=== PATIENT | female | born 1965 | race Two or more races ===

== ENCOUNTER 2019-01-26 20:36 | Emergency (ER) | payer OTHER ==
[2019-01-26 20:46] VITALS: BP 168/95; PULSE 91; TEMP 99; BMI 32.9
--- NOTE | 2019-01-26 20:50 | PDOC ---
History of Present Illness - General Chief Complaint: Abscess Boil Stated Complaint: FEVER Time Seen by Provider: 01/26/19 20:49 History Source: Patient Exam Limitations: No Limitations - History of Present Illness Initial Comments: Janna Herbert is a 53 yo F w a pmh of IDDM, HTN, asthma, thyroid Ca s/p thyroid resection on levothyroxine who presents to the [facility] ER via private auto because she has been having multiple abscesses. The patient states that one month ago she developed an abscess on her buttock for which she went to [facility] and had the abscess I&D'ed. She staes that [facility] also gave her 3 Abx prescriptions for the abscess - Bactrim, metronidazole, and ciprofloxacin. The patient took all these medications as prescribed but returns to the [facility] ER because now she has around 10-15 new abscesses spread out around her buttock, groin, back, and even on her face. The patient has pictures of her prior abscesses for which they had surrounding areas of erythema, and cellulitic appearing skin. She has been self popping her abscesses and trying to drain out the pus. Today her abscesses are mostly crusted over and do not appear ready to pop. She has no surrounding areas of erythema around her abscesses today. What prompted the patient to come to the ER is that she started getting fevers, feeling very weak, and the abscesses have become very painful especially the one on her nose. She does not know what is going on and wants these abscesses evaluated. Patient denies having any chest pain, SOB, difficulty breathing, dysuria, frequency, productive cough, diarrhea, nausea, vomiting, headache, neck pain or blurry vision. LMP: Began yesterday PCP: Timbo steel PSH: Cholecystectomy, thyroid removal, Allergies: NKA, NKDA Social Hx: Denies smoking, drinking, or illicit drug usage. Past History - Past Medical History Allergies/Adverse Reactions: Allergies Allergy/AdvReac Type Severity Reaction Status Date / Time No Known Allergies Allergy Verified 01/26/19 20:40 Home Medications: Ambulatory Orders Clindamycin [Cleocin -] 300 mg PO Q6HPO 7 Days #28 capsule 01/26/19 Glipizide/Metformin HCl [Glipizide-Metformin 5-500 mg] 1 each PO DAILY 07/20/19 Insulin Glargine,Hum.rec.anlog [Kena Richey U-100] 45 unit SQ HS 01/26/19 Levothyroxine [Synthroid -] 150 mcg PO DAILY 01/26/19 Mupirocin Ointment [Bactroban Ointment (For Decolonization) -] 1 applic TP BID 5 Days #5 applic 01/26/19 Mupirocin Ointment [Bactroban Ointment (For Decolonization) -] 1 applic TP BID 5 Days #5 applic 01/26/19 Asthma: Yes COPD: No Diabetes: Yes HTN: Yes - Surgical History Cholecystectomy: Yes - Suicide/Smoking/Psychosocial Hx Smoking History: Never smoked Drug/Substance Use Hx: No Review of Systems - Review of Systems Able to Perform ROS?: Yes Comments:: CONSTITUTIONAL: Present: Fever, chills, generalized weakness, malaise Absent: diaphoresis, loss of appetite HEENT: Absent: rhinorrhea, nasal congestion, throat pain, throat swelling, difficulty swallowing, mouth swelling, ear pain, eye pain, visual Changes CARDIOVASCULAR: Absent: chest pain, syncope, palpitations, irregular heart rate, lightheadedness , peripheral edema RESPIRATORY: Absent: cough, shortness of breath, dyspnea with exertion, orthopnea, wheezing, stridor, hemoptysis GASTROINTESTINAL: Absent: abdominal pain, abdominal distension, nausea, vomiting, diarrhea, constipation, melena, hematochezia GENITOURINARY: Present: Genital pain Absent: dysuria, frequency, urgency, hesitancy, hematuria, flank pain MUSCULOSKELETAL: Absent: myalgia, arthralgia, joint swelling SKIN: Present: Rash Absent: itching, pallor HEMATOLOGIC/IMMUNOLOGIC: Present: Frequent infections Absent: easy bleeding, easy bruising, lymphadenopathy ENDOCRINE: Absent: unexplained weight gain, unexplained weight loss, heat intolerance, cold intolerance NEUROLOGIC: Absent: headache, focal weakness or paresthesias, dizziness, unsteady gait, seizure, mental status changes, bladder or bowel incontinence PSYCHIATRIC: Absent: anxiety, depression, suicidal or homicidal ideation, hallucinations. *Physical Exam - Vital Signs Last Vital Signs Temp Pulse Resp BP Pulse Ox 99.0 F 91 H 20 168/95 98 01/26/19 20:40 01/26/19 20:40 01/26/19 20:40 01/26/19 20:40 01/26/19 20:40 - Physical Exam Comments: GENERAL: Well developed, well nourished. Awake and alert. No acute distress. HEENT: There is a swollen 2x2 area on the left side of her nose which is indurated and TTP. Normocephalic, atraumatic. PERRLA, EOMI. No conjunctival pallor. Sclera are non-icteric. Moist mucous membranes. Oropharynx is clear. NECK: Supple. Full ROM. No JVD. CARDIOVASCULAR: Regular rate and rhythm. No murmurs, rubs, or gallops. Distal pulses are 2+ and symmetric. PULMONARY: No evidence of respiratory distress. Lungs clear to auscultation bilaterally. No wheezing, rales or rhonchi. ABDOMINAL: Soft. Non-tender. Non-distended. No rebound or guarding. No organomegaly. Normoactive bowel sounds. MUSCULOSKELETAL Normal range of motion at all joints. No bony deformities or tenderness. No CVA tenderness. EXTREMITIES: No cyanosis. No clubbing. No edema. No calf tenderness. SKIN: There are multiple indurated areas which are TTp on the patient's buttock, lower back, and groin. These abscesses are mostly fluctuant but have no areas of surrounding erythema. Warm and dry. Normal capillary refill. No jaundice. NEUROLOGICAL: Alert, awake, appropriate. Cranial nerves 2-12 intact. No deficits to light touch in face, upper extremities and lower extremities. No motor deficits in the in face, upper extremities and lower extremities. Normal speech. Gait is normal without ataxia. PSYCHIATRIC: Cooperative. Good eye contact. Appropriate mood and affect. Heart Score/ECG Review - ECG Intrepretation Rhythm: Regular Rhythm - [place]: Normal - P and HI Atrial Enlargement: Left Prominent R with upright T in V1 (true posterior VT): No Delta Wave(s) Present: No WPW: No - QRS Poor R Wave Progression: No Q Wave Present: No - ST and T Early Repolarization: No Non Specific ST-T Wave changes: No Flattened T Waves: No Prolonged Q-T Interval: Yes - ECG Impressions Normal ECG: No Non-specific ST Elevation: No Ischemic Changes: No Bradycardia: No Torsades tej Pointes: No WPW: No ED Treatment Course - LABORATORY CBC & Chemistry Diagram: 01/26/19 21:24 01/26/19 21:24 - RADIOLOGY Radiograph Interpretation: CXR: Single view AP portable chest Sepsis Trachea midline with normal heart size and no mediastinal widening no infiltrate, mass or effusion Impression: Normal single view AP portable chest Medical Decision Making - Medical Decision Making Janna Herbert is a 53 yo F w a pmh of IDDM, HTN, asthma, thyroid Ca s/p thyroid resection on levothyroxine who presents to the [facility] ER via private auto because she has been having multiple abscesses. The patient states that one month ago she developed an abscess on her buttock for which she went to [facility] and had the abscess I&D'ed. She staes that [facility] also gave her 3 Abx prescriptions for the abscess - Bactrim, metronidazole, and ciprofloxacin. The patient took all these medications as prescribed but returns to the [facility] ER because now she has around 10-15 new abscesses spread out around her buttock, groin, back, and even on her face. The patient has pictures of her prior abscesses for which they had surrounding areas of erythema, and cellulitic appearing skin. She has been self popping her abscesses and trying to drain out the pus. Today her abscesses are mostly crusted over and do not appear ready to pop. She has no surrounding areas of erythema around her abscesses today. What prompted the patient to come to the ER is that she started getting fevers, feeling very weak, and the abscesses have become very painful especially the one on her nose. She does not know what is going on and wants these abscesses evaluated. Vital Signs Temp Pulse Resp BP Pulse Ox 99.0 F 91 H 20 168/95 98 01/26/19 20:40 01/26/19 20:40 01/26/19 20:40 01/26/19 20:40 01/26/19 20:40 MDM: Patient presents with multiple refractory abscesses despite receiving 3 Abx medications. Now she endorses fevers, chills, weakness, and multiple abscesses. It appears she has some systemic syndrome causing her to have all these abscesses. She might be colonized with MRSA. Plan: MRSA screen, labs, urine, cultures, IV hydration, ED sepsis workup, re- assess. Labs: Leukocytosis and hyperglycemia Urine: 3+ blood likely from period CXR: Unremarkable EKG: NS rate of 83, narrow complexes, normal axis, left atrial enlargement no ventricular hypertrophy, no ST elevation or depression, no abnormal TWI, no Q waves, QTc - prolonged at 481, HI - 142. Re-assessment: Patient feels well after tylenol and IV hydration. Disposition: Home with clindamycin and intranasal mupirocen ointment - PCP FU - Return precautions discussed. *DC/Admit/Observation/Transfer Diagnosis at time of Disposition: Multiple sweat gland abscesses - Discharge Dispostion Disposition: HOME Condition at time of disposition: Improved Decision to Admit order: No - Prescriptions Prescriptions: Clindamycin [Cleocin -] 300 mg PO Q6HPO 7 Days #28 capsule Mupirocin Ointment [Bactroban Ointment (For Decolonization) -] 1 applic TP BID 5 Days #5 applic Mupirocin Ointment [Bactroban Ointment (For Decolonization) -] 1 applic TP BID 5 Days #5 applic - Referrals Referrals: Giovanni Steel MD [Primary Care Provider] - - Patient Instructions Printed Discharge Instructions: DI for Methicillin-Resistant Staph Infection ( MRSA) Additional Instructions: You came into the ER with multiple abscesses. We believe you have MRSA. 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 Come back to the ER immediately if your pain worsens, you get a fever, or have any other new or worsening concerns. thank you for coming to the [facility] ER. We hope you feel better soon! Print Language: GUATEMALAN - Post Discharge Activity
[2019-01-26] MEDS ORDERED: SODIUM CHLORIDE 2,694 ML IV ONE (21:04)
[2019-01-26] MEDS ORDERED: ACETAMINOPHEN 325 MG TABLET (FP) PO ONE (21:15)
[2019-01-26 21:44] LABS: EOS % 4.6 % (0-4.5); HEMATOCRIT 35.3 % (32.4-45.2); HEMOGLOBIN 11.4 GM/dL (10.7-15.3); LYMPH % 18.3 % (8-40); MCH 25.2 pg (25.7-33.7); MCHC 32.2 g/dl (32.0-36.0); MEAN CELL VOLUME 78.4 fl (80-96); MEAN PLT VOLUME 9.5 fl (7.5-11.1); MONO % 6.4 % (3.8-10.2); NEUT % 69.7 % (42.8-82.8); PLATELET COUNT 286 K/MM3 (134-434); RDW 16.3 % (11.6-15.6); WHITE BLOOD COUNT 11.4 K/mm3 (4.0-10.0)
[2019-01-26 21:49] LABS: EPI CELLS 0.4 /HPF (0-5/HPF); HYALINE CASTS 0 /lpf (0-8); PH,URINE 6.5 (5.0-8.0); URINE APPEARANCE CLEAR; URINE BACTERIA 1.4 /hpf (NEGATIVE); URINE BILIRUBIN NEGATIVE (NEGATIVE); URINE COLOR YELLOW; URINE GLUCOSE (UA) 3+ (NEGATIVE); URINE KETONE NEGATIVE (NEGATIVE); URINE LEUK ESTERASE NEGATIVE (NEGATIVE); URINE NITRITE NEGATIVE (NEGATIVE); URINE PROTEIN 2+ (NEGATIVE); URINE RBC 480 /hpf (0-4); URINE UROBILINOGEN 0.2 mg/dL (0.2-1.0); URINE WBC 1 /hpf (0-5)
[2019-01-26 22:03] LABS: INR 1.03 (0.83-1.09); PROTHROMBIN TIME (PATIENT) 12.1 SEC (9.7-13.0)
[2019-01-26 22:06] LABS: ACTIVATED PTT 32.6 SECONDS (25.2-36.5)
[2019-01-26 22:14] LABS: ALBUMIN 3.6 g/dl (3.4-5.0); BILIRUBIN,TOTAL 0.2 mg/dL (0.2-1); BLOOD UREA NITROGEN 5.8 mg/dL (7-18); CALCIUM 8.2 mg/dL (8.5-10.1); POTASSIUM 4.1 mmol/L (3.5-5.1); TOT PROT 7.4 g/dl (6.4-8.2)
[2019-01-26] MEDS ORDERED: ACETAMINOPHEN 325 MG TABLET (FP) ONE (22:35)
--- NOTE | 2019-01-26 23:10 | PDOC ---
Attending Attestation - Resident Resident Name: Greg Falk - ED Attending Attestation I have performed the following: I have examined & evaluated the patient, The case was reviewed & discussed with the resident, I agree w/resident's findings & plan, Exceptions are as noted - HPI HPI: 01/27/19 00:39 Reviewed Residents HPI - Physicial Exam PE: 01/27/19 00:39 Reviewed Residents PE
--- NOTE | 2019-01-27 17:43 | EKG ---
Test Reason : Blood Pressure : / mmHG Vent. Rate : 083 BPM Atrial Rate : 083 BPM P-R Int : 142 ms QRS Dur : 070 ms QT Int : 410 ms P-R-T Axes : 051 040 065 degrees QTc Int : 481 ms NORMAL SINUS RHYTHM POSSIBLE LEFT ATRIAL ENLARGEMENT PROLONGED QT ABNORMAL ECG NO PREVIOUS ECGS AVAILABLE Confirmed by HARINDER HALL MD ([id number]) on 01/27/2019 5:42:57 PM Referred By: Confirmed By:HARINDER HALL MD
== END 2019-01-27 00:15 | disposition home or self-care (01) ==
LOC: JER 20:36
PROC: 3E0337Z Introduction of Electrolytic and Water Balance Substance into Peripheral Vein, Percutaneous Approach (ICD-10-PCS; principal; 2019-01-26)
DX: L74.8 Other eccrine sweat disorders (principal); I10 Essential (primary) hypertension; E11.9 Type 2 diabetes mellitus without complications; J45.909 Unspecified asthma, uncomplicated; Z85.850 Personal history of malignant neoplasm of thyroid
CPT/HCPCS: 36415; 71045-TC-FY; 80053; 81003; 83605; 84484; 85025; 85610; 85730; 87040; 87081; 87086; 93005; 93010; 96360; 99283-25; J7030

== ENCOUNTER 2019-05-25 14:05 | Emergency (ER) | payer OTHER ==
[2019-05-25 14:09] VITALS: BP 155/83; PULSE 99; TEMP 98; BMI 33.3
--- NOTE | 2019-05-25 15:10 | PDOC ---
History of Present Illness - General Chief Complaint: Eye Problem Stated Complaint: RT EYE PAIN/ FEVER Time Seen by Provider: 05/25/19 14:11 History Source: Patient Exam Limitations: No Limitations Past History - Travel Traveled outside of the country in the last 30 days: No Close contact w/someone who was outside of country & ill: No - Past Medical History Allergies/Adverse Reactions: Allergies Allergy/AdvReac Type Severity Reaction Status Date / Time No Known Allergies Allergy Verified 05/25/19 14:09 Home Medications: Ambulatory Orders Clindamycin [Cleocin -] 300 mg PO Q6HPO 7 Days #28 capsule 01/26/19 Glipizide/Metformin HCl [Glipizide-Metformin 5-500 mg] 1 each PO DAILY 01/26/19 Insulin Glargine,Hum.rec.anlog [Basaglar Kwikpen U-100] 45 unit SQ HS 01/26/19 Levothyroxine [Synthroid -] 150 mcg PO DAILY 01/26/19 Mupirocin Ointment [Bactroban Ointment (For Decolonization) -] 1 applic TP BID 5 Days #5 applic 01/26/19 Mupirocin Ointment [Bactroban Ointment (For Decolonization) -] 1 applic TP BID 5 Days #5 applic 01/26/19 Erythromycin 0.5% Eye Ointment [Erythromycin 0.5% Eye Ointment -] 1 applic OD TID #1 tube 05/25/19 Asthma: Yes COPD: No Diabetes: Yes HTN: Yes - Surgical History Cholecystectomy: Yes - Psycho Social/Smoking Cessation Hx Smoking History: Never smoked Drug/Substance Use Hx: No Review of Systems - Review of Systems Able to Perform ROS?: Yes Comments:: 05/25/19 19:27 CONSTITUTIONAL: Absent: fever, chills, diaphoresis, generalized weakness, malaise, loss of appetite HEENT: Present: eye pain Absent: rhinorrhea, nasal congestion, throat pain, throat swelling, difficulty swallowing, mouth swelling, ear pain, visual Changes CARDIOVASCULAR: Absent: chest pain, loss of consciousness, palpitations, irregular heart rate, peripheral edema RESPIRATORY: Absent: cough, shortness of breath, dyspnea with exertion, orthopnea, wheezing, stridor, hemoptysis GASTROINTESTINAL: Absent: abdominal pain, abdominal distension, nausea, vomiting, diarrhea, constipation, melena, hematochezia GENITOURINARY: Absent: dysuria, frequency, urgency, hesitancy, hematuria, flank pain, genital pain MUSCULOSKELETAL: Absent: myalgia, arthralgia, joint swelling SKIN: Absent: rash, itching, pallor HEMATOLOGIC/IMMUNOLOGIC: Absent: easy bleeding, easy bruising, lymphadenopathy, frequent infections ENDOCRINE: Absent: unexplained weight gain, unexplained weight loss, heat intolerance, cold intolerance NEUROLOGIC: Absent: headache, focal weakness or paresthesias, dizziness, unsteady gait, seizure, mental status changes, bladder or bowel incontinence PSYCHIATRIC: Absent: anxiety, depression, suicidal or homicidal ideation, hallucinations. Is the patient limited Cook Islander proficient: No *Physical Exam - Vital Signs Last Vital Signs Temp Pulse Resp BP Pulse Ox 98 F 99 H 18 155/83 99 05/25/19 14:06 05/25/19 14:06 05/25/19 14:06 05/25/19 14:06 05/25/19 14:06 - Physical Exam Comments: 05/25/19 19:28 GENERAL: The patient is awake, alert, and fully oriented, in no acute distress. HEAD: Normal with no signs of trauma. EYES: Pupils equal, round and reactive to light, extraocular movements intact, sclera anicteric, L conjunctiva clear. Right conjunctiva is injected. EXTREMITIES: Normal range of motion, no edema. NEUROLOGICAL: Normal speech, normal gait. PSYCH: Normal mood, normal affect. SKIN: Warm, Dry, normal turgor, no rashes or lesions noted. Medical Decision Making - Medical Decision Making 05/25/19 19:28 Patient is a 53-year-old female who presents the ER today for right eye pain for 2 days. She states that she recently had the stomach virus including vomiting and diarrhea 3 days ago. She states that the redness started while she had the gastroenteritis. She is concerned because it is not getting better and she has some eye pain. Patient usually wears glasses however she is not wearing them today. Denies fevers, chills, dizziness, double vision, blurry vision. A/P: Conjunctivitis On exam the right conjunctiva is injected. Unlikely corneal abrasion as patient denies any eye trauma or anything getting into her eye. Most likely of viral conjunctivitis given recent gastroenteritis. Eyes are soft on exam, unlikely glaucoma. We will treat with erythromycin ointment and give ophthalmology follow-up. I discussed the physical exam findings, ancillary test results and final diagnoses with the patient. I answered all of the patient's questions. The patient was satisfied with the care received and felt comfortable with the discharge plan and treatment plan. The Patient agrees to follow up with the primary care physician/specialist within 24-72 hours. Return precautions were given. Discharge - Discharge Information Problems reviewed: Yes Clinical Impression/Diagnosis: Conjunctivitis Qualifiers: Conjunctivitis type: acute Acute conjunctivitis type: viral Laterality: right Qualified Code(s): B30.9 - Viral conjunctivitis, unspecified Condition: Stable Disposition: HOME - Admission No - Additional Discharge Information Prescriptions: Erythromycin 0.5% Eye Ointment [Erythromycin 0.5% Eye Ointment -] 1 applic OD TID #1 tube - Follow up/Referral Referrals: Quinn Davis MD [Staff Physician] - - Patient Discharge Instructions Patient Printed Discharge Instructions: DI for Conjunctivitis Additional Instructions: You have conjunctivitis. This is an eye infection. Please use erythromycin ointment three times a day to the affected eye for one week. Please wash her hands frequently Do not wear contact lenses until your infection clears Follow up with ophthalmology if her symptoms do not improve within a week. Return to the ER for visual changes, blurry vision, or any new or worsening symptoms. - Post Discharge Activity Work/Back to School Note: Back to Work
== END 2019-05-25 15:15 | disposition home or self-care (01) ==
LOC: JERFT 14:05
DX: B30.9 Viral conjunctivitis, unspecified (principal); B97.89 Other viral agents as the cause of diseases classified elsewhere; I10 Essential (primary) hypertension; E11.9 Type 2 diabetes mellitus without complications; Z79.4 Long term (current) use of insulin; J45.909 Unspecified asthma, uncomplicated
CPT/HCPCS: 99281-25

== ENCOUNTER 2019-07-08 23:53 | Emergency (ER) | payer OTHER ==
[2019-07-09 00:46] VITALS: PULSE 89; TEMP 99; BMI 32.4
--- NOTE | 2019-07-09 01:17 | PDOC ---
History of Present Illness - General Chief Complaint: Cold Symptoms Stated Complaint: FEVER CHEST PAIN Time Seen by Provider: 07/09/19 01:16 History Source: Patient - History of Present Illness Initial Comments: 07/09/19 02:32 53 year old female with fever, cough and congestion x 5 days. patient reports that grandson with nasal congestion and cough. patient reports midsternal chest pain worse with palpation, and breathing. denies nausea, vomiting pmhx: hypertension, diabetes, asthma 07/09/19 03:18 Past History - Past Medical History Allergies/Adverse Reactions: Allergies Allergy/AdvReac Type Severity Reaction Status Date / Time No Known Allergies Allergy Verified 07/09/19 00:36 Home Medications: Ambulatory Orders Clindamycin [Cleocin -] 300 mg PO Q6HPO 7 Days #28 capsule 01/26/19 Glipizide/Metformin HCl [Glipizide-Metformin 5-500 mg] 1 each PO DAILY 01/26/19 Insulin Glargine,Hum.rec.anlog [Basaglar Kwikpen U-100] 45 unit SQ HS 01/26/19 Levothyroxine [Synthroid -] 150 mcg PO DAILY 01/26/19 Mupirocin Ointment [Bactroban Ointment (For Decolonization) -] 1 applic TP BID 5 Days #5 applic 01/26/19 Mupirocin Ointment [Bactroban Ointment (For Decolonization) -] 1 applic TP BID 5 Days #5 applic 01/26/19 Erythromycin 0.5% Eye Ointment [Erythromycin 0.5% Eye Ointment -] 1 applic OD TID #1 tube 05/25/19 Albuterol Sulfate Inhaler - [Ventolin HFA Inhaler -] 1 - 2 inh PO Q4H PRN #1 inhaler 07/09/19 Azithromycin [Zithromax 250mg Tablets -] 250 mg PO UTDICT #6 tab 07/09/19 Miscellaneous Drug Not in Syst 1 each IH Q4H PRN #30 each 07/09/19 Sodium Chloride [Nasal [place]] 1 ml NS QID PRN #1 spray 07/09/19 Asthma: Yes COPD: No Diabetes: Yes HTN: Yes - Surgical History Cholecystectomy: Yes - Psycho Social/Smoking Cessation Hx Smoking History: Never smoked Have you smoked in the past 12 months: No Information on smoking cessation initiated: No Hx Alcohol Use: No Drug/Substance Use Hx: No Review of Systems - Review of Systems Able to Perform ROS?: Yes Is the patient limited Welsh proficient: No Constitutional: No: Symptoms Reported, See HPI, Chills, Diaphoresis, Fever, Loss of Appetite, Malaise, Night Sweats, Weakness, Weight Stable, Unintentional Wgt. Loss, Unexplained wgt Loss, Other Respiratory: Yes: Cough Cardiac (ROS): Yes: Chest Pain *Physical Exam - Vital Signs Last Vital Signs Temp Pulse Resp BP Pulse Ox 99.0 F 89 18 193/101 H 98 07/09/19 00:10 07/09/19 00:10 07/09/19 00:10 07/09/19 00:10 07/09/19 00:10 - Physical Exam Respiratory/Chest: positive: Chest Tender, Lungs Clear, Normal Breath Sounds Cardiovascular: positive: Regular Rhythm, Regular Rate Gastrointestinal/Abdominal: positive: Normal Bowel Sounds, Soft. negative: Tender Extremity: positive: Normal Capillary Refill, Normal Inspection, Normal Range of Motion Integumentary: positive: Normal Color, Dry, Warm Neurologic: positive: Fully Oriented, Alert ED Progress Note - Progress Note Progress Note: 07/09/19 02:35 A: bronchitis P: chest xray ibuprofen saline neb close pcp follow up and strict return precautions reviewed with patient Discharge - Discharge Information Problems reviewed: Yes Clinical Impression/Diagnosis: Bronchitis Condition: Good Disposition: HOME - Additional Discharge Information Prescriptions: Albuterol Sulfate Inhaler - [Ventolin HFA Inhaler -] 1 - 2 inh PO Q4H PRN #1 inhaler PRN Reason: Cough Azithromycin [Zithromax 250mg Tablets -] 250 mg PO UTDICT #6 tab Miscellaneous Drug Not in Syst 1 each IH Q4H PRN #30 each PRN Reason: Nasal Congestion Sodium Chloride [Nasal [place]] 1 ml NS QID PRN #1 spray PRN Reason: Nasal Congestion - Follow up/Referral Referrals: Giovanni Shannon MD [Primary Care Provider] - - Patient Discharge Instructions Patient Printed Discharge Instructions: DI for Acute Bronchitis Additional Instructions: Drink plenty of fluids. take azithromycin as prescribed Give Tylenol every 4 hours as needed for fever Give ibuprofen then every 6 hours as needed for fever use albuterol inhaler as prescribed Follow-up with your doctor as soon as possible Return to the emergency room if symptoms worsen. - Post Discharge Activity Work/Back to School Note: Back to Work
--- NOTE | 2019-07-09 01:18 | PDOC ---
*Physical Exam - Vital Signs Last Vital Signs Temp Pulse Resp BP Pulse Ox 99.0 F 89 18 193/101 H 98 07/09/19 00:10 07/09/19 00:10 07/09/19 00:10 07/09/19 00:10 07/09/19 00:10 Medical Decision Making - Medical Decision Making 07/09/19 01:18 Patient seen by the advanced practice provider under my direct supervision. Ancillary testing reviewed as necessary. I agree with plan as outlined by the advanced practice provider. Discharge - Discharge Information Problems reviewed: Yes Clinical Impression/Diagnosis: Bronchitis Condition: Good Disposition: HOME - Additional Discharge Information Prescriptions: Albuterol Sulfate Inhaler - [Ventolin HFA Inhaler -] 1 - 2 inh PO Q4H PRN #1 inhaler PRN Reason: Cough Azithromycin [Zithromax 250mg Tablets -] 250 mg PO UTDICT #6 tab Miscellaneous Drug Not in Syst 1 each IH Q4H PRN #30 each PRN Reason: Nasal Congestion Sodium Chloride [Nasal [place]] 1 ml NS QID PRN #1 spray PRN Reason: Nasal Congestion - Follow up/Referral Referrals: Giovanni Shannon MD [Primary Care Provider] - - Patient Discharge Instructions Patient Printed Discharge Instructions: DI for Acute Bronchitis Additional Instructions: Drink plenty of fluids. take azithromycin as prescribed Give Tylenol every 4 hours as needed for fever Give ibuprofen then every 6 hours as needed for fever use albuterol inhaler as prescribed Follow-up with your doctor as soon as possible Return to the emergency room if symptoms worsen. - Post Discharge Activity Work/Back to School Note: Back to Work
[2019-07-09] MEDS ORDERED: SODIUM CHLORIDE FOR INHALATION 3 ML VIAL.NEB IH ONE (01:37)
[2019-07-09] MEDS ORDERED: IBUPROFEN 600 MG TABLET (FP) PO ONE ×2 (01:37→01:58)
[2019-07-09 03:45] VITALS: BP 149/94
--- NOTE | 2019-07-10 17:42 | EKG ---
Test Reason : Blood Pressure : / mmHG Vent. Rate : 083 BPM Atrial Rate : 083 BPM P-R Int : 150 ms QRS Dur : 072 ms QT Int : 410 ms P-R-T Axes : 074 067 091 degrees QTc Int : 481 ms NORMAL SINUS RHYTHM NONSPECIFIC T WAVE ABNORMALITY PROLONGED QT ABNORMAL ECG WHEN COMPARED WITH ECG OF 26-JAN-2019 21:37, NO SIGNIFICANT CHANGE WAS FOUND Confirmed by YVETTE HARRIS, SAVI ([id number]) on 07/10/2019 5:42:08 PM Referred By: Confirmed By:SAVI CRAWFORD MD
== END 2019-07-09 04:31 | disposition home or self-care (01) ==
LOC: JER 23:53
PROC: 3E0F7GC Introduction of Other Therapeutic Substance into Respiratory Tract, Via Natural or Artificial Opening (ICD-10-PCS; principal; 2019-07-08)
DX: J40 Bronchitis, not specified as acute or chronic (principal); I10 Essential (primary) hypertension; E11.9 Type 2 diabetes mellitus without complications; Z79.4 Long term (current) use of insulin; J45.998 Other asthma
CPT/HCPCS: 71046-TC-FY; 93005; 93010; 94640; 99282-25

== ENCOUNTER 2019-09-29 17:54 | Emergency (ER) | payer OTHER ==
[2019-09-29 17:59] VITALS: BP 162/94; PULSE 89; TEMP 98.5; BMI 32.4
--- NOTE | 2019-09-29 18:05 | PDOC ---
Rapid Medical Evaluation Chief Complaint: Respiratory Time Seen by Provider: 09/29/19 18:00 Medical Evaluation: Allergies Allergy/AdvReac Type Severity Reaction Status Date / Time No Known Allergies Allergy Verified 09/29/19 17:59 Vital Signs Temp Pulse Resp BP Pulse Ox 98.5 F 89 22 H 162/94 100 09/29/19 17:57 09/29/19 17:57 09/29/19 17:57 09/29/19 17:57 09/29/19 17:57 09/29/19 18:02 Pt c/o: cough, chest soreness x 2-3 days, worse coughing during day and used albuterol inhaler with goos effect but s/s return w/in hrs. pt denies fever, chills, headache, weakness, recent travel or sick contacts. Last used inhaler 3 hrs ago Pt on brief exam: vss, lcta, reproducible chest tenderness jay, no resp distress or use of accessory muscles Pt ordered for: none. ? cxr and prednisone Pt proceed to the ED Discharge Disposition - Diagnosis Cough - Referrals Referrals: Giovanni Shannon MD [Primary Care Provider] - - Patient Instructions - Post Discharge Activity
--- NOTE | 2019-09-29 18:36 | PDOC ---
History of Present Illness - General Chief Complaint: Respiratory Stated Complaint: COUGH Time Seen by Provider: 09/29/19 18:00 History Source: Patient, Old Records Exam Limitations: No Limitations - History of Present Illness Initial Comments: 09/29/19 18:36 HISTORY OF PRESENT ILLNESS: 53-year-old woman past medical history of asthma, IDDM, hypertension, thyroid cancer on levothyroxine presents emergency department for evaluation of cough for 3 to 4 days. Patient denies any fevers or chills. Patient reports has been using her albuterol MDI at home which is helped with her cough. Patient denies chest pain abdominal pain, nausea or vomiting. At the end of the initial evaluation patient reported she is in the emergency department because she was concerned that she has Covid-19. No recent travel or sick contacts. PAST MEDICAL HISTORY: See HPI SURGICAL HISTORY: Denies ALLERGIES: No known drug allergies REVIEW OF SYSTEMS General/Constitutional: Denies fever or chills. Denies weakness, weight change. HEENT: Denies change in vision. Denies ear pain or discharge. Denies sore throat. Cardiovascular: Denies chest pain or shortness of breath. Respiratory: See HPI Gastrointestinal: Denies nausea, vomiting, diarrhea or constipation. Denies rectal bleeding. Genitourinary: Denies dysuria, frequency, or change in urination. Musculoskeletal: Denies joint or muscle swelling or pain. Denies neck or back pain. Skin and breasts: Denies rash or easy bruising. Neurologic: Denies headache, vertigo, loss of consciousness, or loss of sensation. Psychiatric: Denies depression or anxiety. Endocrine: Denies increased thirst. Denies abnormal weight change. Hematologic/Lymphatic: Denies anemia, easy bleeding, or history of blood clots. Allergic/Immunologic: Denies hives or skin allergy. Denies latex allergy. PHYSICAL EXAM General Appearance: Well-appearing, appropriately dressed. No apparent distress, no intoxication. HEENT: EOMI, PERRLA, normal ENT inspection, normal voice, TMs normal, pharynx normal. No conjunctival pallor. No photophobia, scleral icterus. Neck: Supple. Trachea midline. No tenderness, rigidity, carotid bruit, stridor, lymphadenopathy, or thyromegaly. Respiratory/Chest: Lungs CTAB. No shortness of breath, chest tenderness, respiratory distress, accessory muscle use. No crackles, rales, rhonchi, stridor, wheezing, dullness Cardiovascular: RRR. S1, S2. No JVD, murmur, bradycardia, tachycardia. Vascular Pulses: Dorsalis-Pedis (R): 2+, Dorsalis-Pedis (L): 2+ Integumentary: Appropriate color, dry, warm. No cyanosis, erythema, jaundice or rash Past History - Past Medical History Allergies/Adverse Reactions: Allergies Allergy/AdvReac Type Severity Reaction Status Date / Time No Known Allergies Allergy Verified 09/29/19 17:59 Home Medications: Ambulatory Orders Clindamycin [Cleocin -] 300 mg PO Q6HPO 7 Days #28 capsule 01/26/19 Glipizide/Metformin HCl [Glipizide-Metformin 5-500 mg] 1 each PO DAILY 01/26/19 Insulin Glargine,Hum.rec.anlog [Basaglar Kwikpen U-100] 45 unit SQ HS 01/26/19 Levothyroxine [Synthroid -] 150 mcg PO DAILY 01/26/19 Mupirocin Ointment [Bactroban Ointment (For Decolonization) -] 1 applic TP BID 5 Days #5 applic 01/26/19 Mupirocin Ointment [Bactroban Ointment (For Decolonization) -] 1 applic TP BID 5 Days #5 applic 01/26/19 Erythromycin 0.5% Eye Ointment [Erythromycin 0.5% Eye Ointment -] 1 applic OD TID #1 tube 05/25/19 Albuterol Sulfate Inhaler - [Ventolin HFA Inhaler -] 1 - 2 inh PO Q4H PRN #1 inhaler 07/09/19 Miscellaneous Drug Not in Syst 1 each IH Q4H PRN #30 each 07/09/19 Sodium Chloride [Nasal [place]] 1 ml NS QID PRN #1 spray 07/09/19 Azithromycin [Zithromax 250mg Tablets -] 250 mg PO UTDICT #6 tab 09/29/19 Benzonatate [Tessalon Pearls -] 200 mg PO TID PRN #42 cap 09/29/19 Asthma: Yes COPD: No Diabetes: Yes HTN: Yes - Surgical History Cholecystectomy: Yes - Psycho Social/Smoking Cessation Hx Smoking History: Never smoked Have you smoked in the past 12 months: No Hx Alcohol Use: No Drug/Substance Use Hx: No *Physical Exam - Vital Signs Last Vital Signs Temp Pulse Resp BP Pulse Ox 98.5 F 89 22 H 162/94 100 09/29/19 17:57 09/29/19 17:57 09/29/19 17:57 09/29/19 17:57 09/29/19 17:57 ED Treatment Course - RADIOLOGY Radiology Studies Ordered: Category Date Time Status CHEST PA & LAT [RAD] Stat Radiology 09/29/19 18:09 Taken Medical Decision Making - Medical Decision Making 09/29/19 18:35 A/P: 53-year-old woman with cough for the past 3 to 4 days Lungs clear to auscultation bilaterally Respirations even and unlabored Speaking in full sentences Chest x-ray as read by me: Gail sawyer. Cardiac silhouette is within normal limits. No focal infiltrates or consolidations are noted. Patient has clear lungs and no respiratory distress I feel it is safe to discharge home. Patient reports she has plenty of nebulizer liquids at home. Given patient's comorbidities I will treat with azithromycin as an outpatient. Dereck Skaggs for cough at home Discharge I discussed the physical exam findings, ancillary test results and final diagnoses with the patient. I answered all of the patient's questions. The patient was satisfied with the care received and felt comfortable with the discharge plan and treatment plan. The patient will call their primary care physician within 24 hours to arrange follow-up and will return to the Emergency Department with any new, persistent or worsening symptoms. Portions of this note have been documented using voice recognition software. As a result, errors may occur in the adjunct history instructor process. Effort has been made to correct all grammatical and adjunct history instructor error, but some may have been missed which may produce sporadic inaccurate adjunct history instructor or nonsensical phrases. Discharge - Discharge Information Problems reviewed: Yes Clinical Impression/Diagnosis: Cough Condition: Stable Disposition: HOME - Admission No - Additional Discharge Information Prescriptions: Benzonatate [Tessalon Pearls -] 200 mg PO TID PRN #42 cap PRN Reason: Cough Azithromycin [Zithromax 250mg Tablets -] 250 mg PO UTDICT #6 tab - Follow up/Referral Referrals: Giovanni Shannon MD [Primary Care Provider] - - Patient Discharge Instructions Additional Instructions: Avoid contact with others until fevers and cough resolved Lots of handwashing and good hygiene Continue albuterol nebulizers every 4-6 hours for the next 2 days then as needed for continued cough Followup with private physician in one to 2 days Return to emergency department / pediatric hospital for worsened symptoms, fevers, dehydration drink 2-3 L of water daily Take Tylenol 650 mg every 4 hours for fever and pain Take azithromycin as directed. Take Tessalon 200 mg every 8 hours as needed for cough Return to the nearest ER if short of breath, unable to swallow or feeling sicker Followup with your doctor in one to 2 days Covid-19 Symptoms and Knowing When to Stay Home and Return to Work The following is the most recent guidance from our Infection Prevention and Control team on the symptoms and duration of Covid-19, along with when to stay home from work, when you may return, and what procedures to follow when you are ready to come back. PLease call [facility] : [facility] CORONAVIRUS HOTLINE: What are the most common symptoms of Covid-19? - Muscle aches - Loss of energy and appetite - Persistent cough - Low grade fever lasting 24 hours or more, causing the person to feel feverish with chills If I have Covid-19, how long can I expect to feel sick? - Typically one week. - The majority of individuals feel better in 5 to 7 days with rest and [id number] cold and flu medications. How does illness progress in cases of Covid-19? - A few individuals progress to pneumonia (infection of the lungs) and/or pneumonitis (inflammation of the lungs). - Pneumonia/pneumonitis causes shortness of breath, worsening cough and in most cases, fever. - Individuals with the symptoms of Covid-19 who develop a worsening cough and shortness of breath must seek care quickly. If Im concerned about my symptoms or feel unwell, when must I stay home from work/ school? If you have muscle aches, cough, fatigue and low-grade fever, do not go to work/ school Evite el contacto con otras personas hasta que se resuelvan las fiebres y la tos Mucho lavado de ezequiel y buena higiene Contine los nebulizadores de albuterol cada 4-6 horas katie los prximos 2 rojas y luego segn sea necesario para la tos continua Seguimiento con mdico privado en [place] a 2 rojas Regreso al servicio de urgencias / hospital peditrico para empeoramiento de los sntomas, fiebres, deshidratacin beber 2-3 L de agua al da [place] Tylenol 650 mg cada 4 horas para la fiebre y el dolor [place] azitromicina noni se indica. [place] Tessalon 200 mg cada 8 horas segn sea necesario para la tos Regrese a la erta ms cercana si tiene dificultad para respirar, no puede tragar o sentirse enfermo Seguimiento con ponce mdico en [place] a 2 rojas Sntomas de Covid-19 y saber cundo quedarse en casa y volver al trabajo La siguiente es la gua ms reciente de nuestro equipo de Prevencin y Control de Infecciones sobre los sntomas y la duracin de Covid-19, junto con cundo quedarse en casa del trabajo, cundo puede regresar y qu procedimientos seguir cuando est listo para volver. PLease llamar [facility] : [facility] CORONAVIRUS HOTLINE: Cules son los sntomas ms comunes de Covid-19? - [place] musculares - Prdida de energa y apetito - Tos persistente - Fiebre de bajo james que dura 24 horas o ms, haciendo que la persona se sienta febril con escalofros Si tengo Covid-19, cunto tiempo puedo esperar sentirme enfermo? - Tpicamente maxi semana. - La mayora de las personas se sienten mejor en 5 a 7 rojas con reposo y medicamentos para el resfriado y la gripe de venta amy. Medical Superintendent progresa la enfermedad en los casos de Covid-19? - Algunos individuos progresan a neumona (infeccin de los pulmones) y/o neumonitis (inflamacin de los pulmones). - Neumona/neumonitis causa dificultad para respirar, empeoramiento de la tos y, en la mayora de los casos, fiebre. - Las personas con los sntomas de Covid-19 que desarrollan un empeoramiento de la tos y dificultad para respirar deben buscar atencin rpidamente. Si estoy preocupado por mis sntomas o me siento mal, cundo matty quedarme en casa del trabajo/ la escuela? Si tiene [place] musculares, tos, fatiga y fiebre de bajo james, no vaya al trabajo/escuela - Post Discharge Activity
== END 2019-09-29 18:37 | disposition home or self-care (01) ==
LOC: JERFT 17:54
DX: Z03.818 Encounter for observation for suspected exposure to other biological agents ruled out (principal); R05 Cough; J45.909 Unspecified asthma, uncomplicated; I10 Essential (primary) hypertension; E11.9 Type 2 diabetes mellitus without complications; Z79.4 Long term (current) use of insulin; Z85.850 Personal history of malignant neoplasm of thyroid; Z90.49 Acquired absence of other specified parts of digestive tract
CPT/HCPCS: 71046-TC-FY; 99283-25

== ENCOUNTER 2019-12-30 22:35 | Inpatient (IN) | payer OTHER ==
[2019-12-30 23:54] LABS: BASO % 0.9 % (0-2.0); EOS % 5.3 % (0-4.5); HEMATOCRIT 36.7 % (32.4-45.2); HEMOGLOBIN 12.1 GM/dL (10.7-15.3); LYMPH % 27.1 % (8-40); MCH 26.7 pg (25.7-33.7); MEAN CELL VOLUME 81.1 fl (80-96); MEAN PLT VOLUME 10.5 fl (7.5-11.1); MONO % 7.3 % (3.8-10.2); NEUT % 59.4 % (42.8-82.8); PLATELET COUNT 236 K/MM3 (134-434); RBC 4.53 M/mm3 (3.60-5.2); RDW 16.7 % (11.6-15.6); WHITE BLOOD COUNT 8.9 K/mm3 (4.0-10.0)
[2019-12-31 00:01] LABS: INR 0.94 (0.83-1.09); PROTHROMBIN TIME (PATIENT) 11.1 SEC (9.7-13.0)
[2019-12-31 00:03] LABS: ACTIVATED PTT 28.3 SECONDS (25.2-36.5)
[2019-12-31 00:03] LABS: EPI CELLS 28 /uL (0-25.1); HYALINE CASTS 0 /uL (0-3.1); PH,URINE 6.5 (5.0-8.0); URINE APPEARANCE CLEAR; URINE BACTERIA 783 /uL (0-1359); URINE BILIRUBIN NEGATIVE (NEGATIVE); URINE COLOR YELLOW; URINE GLUCOSE (UA) 3+ (NEGATIVE); URINE KETONE NEGATIVE (NEGATIVE); URINE LEUK ESTERASE NEGATIVE (NEGATIVE); URINE NITRITE NEGATIVE (NEGATIVE); URINE PROTEIN 1+ (NEGATIVE); URINE RBC 3 /uL (0-23.9); URINE WBC 41 /uL (0-25.8)
[2019-12-31] MEDS ORDERED: CLINDAMYCIN 600MG PREMIX IVPB 600 MG/50 ML BAG IVPB ONE ×2 (00:17→00:27)
[2019-12-31 00:22] LABS: ALBUMIN 3.5 g/dl (3.4-5.0); BILIRUBIN,TOTAL 0.2 mg/dL (0.2-1); CALCIUM 8.6 mg/dL (8.5-10.1); CREATININE 1.1 mg/dL (0.55-1.3); POTASSIUM 4.3 mmol/L (3.5-5.1); TOT PROT 7.5 g/dl (6.4-8.2)
[2019-12-31] MEDS ORDERED: SODIUM CHLORIDE 1,000 ML IV STA (00:54)
[2019-12-31] MEDS ORDERED: INSULIN REGULAR HUMAN 100 UNITS/ML *VIAL SQ ONE (01:04)
[2019-12-31] MEDS ORDERED: ACETAMINOPHEN 325 MG TABLET (FP) PO PRN (01:08)
[2019-12-31] MEDS ORDERED: morphine CARPU-JECT 2 MG/1 ML DISP.SYRIN IVPUSH PRN (01:54)
[2019-12-31] MEDS ORDERED: ALBUTEROL SO4 HFA INHALER IH PRN (01:57)
[2019-12-31] MEDS ORDERED: MORPHINE SULFATE 2 MG/ML VIAL ONE (02:00)
[2019-12-31] MEDS ORDERED: MORPHINE SULFATE 2 MG/ML VIAL IVPUSH PRN (02:33)
[2019-12-31] MEDS ORDERED: amLODIPine BESYLATE 10 MG TABLET (FP) PO ONE (02:58)
[2019-12-31] MEDS ORDERED: amLODIPine BESYLATE 5 MG TABLET (FP) ONE (03:08)
[2019-12-31 04:53] VITALS: BMI 33.3
[2019-12-31] MEDS: INSULIN SLIDING SCALE (NOVOLOG) 1 VIAL SQ SCH ×4 (06:11→22:16)
[2019-12-31] MEDS: LEVOTHYROXINE NA 150 MCG TABLET PO SCH (06:11)
[2019-12-31] MEDS ORDERED: INSULIN (LEVEMIR) 100 UNITS/ML UNITS SQ ONE (08:09)
[2019-12-31 08:44] LABS: BASO % 0.7 % (0-2.0); EOS % 4.9 % (0-4.5); HEMATOCRIT 34.5 % (32.4-45.2); HEMOGLOBIN 11.3 GM/dL (10.7-15.3); LYMPH % 25.9 % (8-40); MCH 26.3 pg (25.7-33.7); MCHC 32.7 g/dl (32.0-36.0); MEAN CELL VOLUME 80.6 fl (80-96); MEAN PLT VOLUME 10.2 fl (7.5-11.1); MONO % 7.2 % (3.8-10.2); NEUT % 61.3 % (42.8-82.8); PLATELET COUNT 210 K/MM3 (134-434); RBC 4.29 M/mm3 (3.60-5.2); RDW 16.2 % (11.6-15.6); WHITE BLOOD COUNT 9.3 K/mm3 (4.0-10.0)
[2019-12-31 09:15] LABS: BILIRUBIN,TOTAL 0.4 mg/dL (0.2-1); BLOOD UREA NITROGEN 11.6 mg/dL (7-18); CALCIUM 8.2 mg/dL (8.5-10.1); CREATININE 0.9 mg/dL (0.55-1.3); POTASSIUM 4.4 mmol/L (3.5-5.1); TOT PROT 6.6 g/dl (6.4-8.2)
[2019-12-31] MEDS: CLINDAMYCIN 600MG PREMIX IVPB 600 MG/50 ML BAG IVPB SCH ×2 (09:35→17:38)
[2019-12-31] MEDS: ENOXAPARIN NA (PORCINE) 40 MG/0.4 ML DISP.SYRIN SQ SCH (09:35)
[2019-12-31] MEDS ORDERED: LISINOPRIL 5 MG TABLET PO SCH (10:00)
[2019-12-31] MEDS ORDERED: PIPERACILLIN/TAZOB 3.375 GM 3.375 GM in DEXTROSE 5%-WATER - 50 ML IVPB SCH ×2 (13:15→18:00)
[2019-12-31] MEDS ORDERED: PT OWN MED DRAWER 7, Y5N ONE (14:19)
[2019-12-31] MEDS: NEOMYCIN/POLYMYXN/HC OTIC SUSPENSION 10 ML BOTTLE AD SCH ×2 (14:21→17:38)
[2019-12-31] MEDS ORDERED: INSULIN (NOVOLOG) ASPART 100 UNITS/ML 10ML VIAL SQ SCH (16:30)
[2019-12-31] MEDS ORDERED: PIPERACILLIN/TAZOBACTAM 3.375 GM VIAL IVPB ONE (17:34)
[2019-12-31] MEDS ORDERED: DEXTROSE 5%-WATER - 50 ML IVPB ONE (17:35)
[2019-12-31] MEDS: PIPERACILLIN/TAZOB 3.375 GM 3.375 GM in DEXTROSE 5%-WATER - 50 ML IVPB SCH (18:18)
[2019-12-31] MEDS: INSULIN (LEVEMIR) 100 UNITS/ML UNITS SQ SCH (22:16)
[2020-01-01] MEDS: NEOMYCIN/POLYMYXN/HC OTIC SUSPENSION 10 ML BOTTLE AD SCH ×4 (00:26→18:26)
[2020-01-01] MEDS ORDERED: PIPERACILLIN/TAZOBACTAM 3.375 GM VIAL IVPB ONE ×3 (00:55→17:48)
[2020-01-01] MEDS ORDERED: DEXTROSE 5%-WATER - 50 ML IVPB ONE ×3 (00:56→17:48)
[2020-01-01] MEDS: PIPERACILLIN/TAZOB 3.375 GM 3.375 GM in DEXTROSE 5%-WATER - 50 ML IVPB SCH ×3 (01:08→17:51)
[2020-01-01] MEDS: CLINDAMYCIN 600MG PREMIX IVPB 600 MG/50 ML BAG IVPB SCH ×3 (01:08→18:26)
[2020-01-01] MEDS: INSULIN (NOVOLOG) ASPART 100 UNITS/ML 10ML VIAL SQ SCH ×4 (06:13→16:48)
[2020-01-01] MEDS: INSULIN SLIDING SCALE (NOVOLOG) 1 VIAL SQ SCH ×4 (06:13→22:01)
[2020-01-01] MEDS: INSULIN (LEVEMIR) 100 UNITS/ML UNITS SQ SCH ×2 (06:14→21:58)
[2020-01-01] MEDS: LEVOTHYROXINE NA 150 MCG TABLET PO SCH (06:14)
[2020-01-01 08:02] LABS: BASO % 0.7 % (0-2.0); EOS % 6.4 % (0-4.5); HEMATOCRIT 33.6 % (32.4-45.2); HEMOGLOBIN 11.1 GM/dL (10.7-15.3); LYMPH % 36.5 % (8-40); MCH 26.3 pg (25.7-33.7); MEAN CELL VOLUME 79.5 fl (80-96); MEAN PLT VOLUME 10.3 fl (7.5-11.1); MONO % 6.3 % (3.8-10.2); NEUT % 50.1 % (42.8-82.8); PLATELET COUNT 227 K/MM3 (134-434); RBC 4.22 M/mm3 (3.60-5.2); RDW 16.3 % (11.6-15.6); WHITE BLOOD COUNT 7.4 K/mm3 (4.0-10.0)
[2020-01-01 08:19] LABS: ALBUMIN 2.9 g/dl (3.4-5.0); BILIRUBIN,TOTAL 0.3 mg/dL (0.2-1); BLOOD UREA NITROGEN 11.1 mg/dL (7-18); CALCIUM 8.5 mg/dL (8.5-10.1); CREATININE 0.9 mg/dL (0.55-1.3); POTASSIUM 4.1 mmol/L (3.5-5.1); TOT PROT 6.4 g/dl (6.4-8.2)
[2020-01-01] MEDS: ENOXAPARIN NA (PORCINE) 40 MG/0.4 ML DISP.SYRIN SQ SCH (09:22)
[2020-01-01] MEDS: BACITRACIN 15 GM TUBE TOPICAL OINTMENT TP SCH ×2 (09:23→21:58)
[2020-01-01] MEDS: HYDROCHLOROTHIAZIDE 12.5 MG CAPSULE (FP) PO SCH (09:23)
[2020-01-01] MEDS: LOSARTAN POTASSIUM 50 MG TABLET PO SCH (09:23)
[2020-01-01] MEDS ORDERED: INSULIN (NOVOLOG) ASPART 100 UNITS/ML 10ML VIAL ONE (16:47)
[2020-01-02] MEDS: NEOMYCIN/POLYMYXN/HC OTIC SUSPENSION 10 ML BOTTLE AD SCH ×2 (00:25→06:03)
[2020-01-02] MEDS ORDERED: PIPERACILLIN/TAZOBACTAM 3.375 GM VIAL IVPB ONE ×2 (02:25→11:18)
[2020-01-02] MEDS ORDERED: DEXTROSE 5%-WATER - 50 ML IVPB ONE ×2 (02:25→11:18)
[2020-01-02] MEDS: PIPERACILLIN/TAZOB 3.375 GM 3.375 GM in DEXTROSE 5%-WATER - 50 ML IVPB SCH ×2 (02:30→11:26)
[2020-01-02] MEDS: CLINDAMYCIN 600MG PREMIX IVPB 600 MG/50 ML BAG IVPB SCH ×2 (03:05→11:25)
[2020-01-02] MEDS: INSULIN SLIDING SCALE (NOVOLOG) 1 VIAL SQ SCH ×2 (06:03→11:27)
[2020-01-02] MEDS: INSULIN (NOVOLOG) ASPART 100 UNITS/ML 10ML VIAL SQ SCH ×2 (06:04→11:26)
[2020-01-02] MEDS: LEVOTHYROXINE NA 150 MCG TABLET PO SCH (06:09)
[2020-01-02] MEDS: INSULIN (LEVEMIR) 100 UNITS/ML UNITS SQ SCH (06:09)
[2020-01-02 08:39] LABS: BASO % 0.8 % (0-2.0); HEMATOCRIT 36.5 % (32.4-45.2); HEMOGLOBIN 11.8 GM/dL (10.7-15.3); LYMPH % 28.9 % (8-40); MCH 25.8 pg (25.7-33.7); MCHC 32.4 g/dl (32.0-36.0); MEAN CELL VOLUME 79.8 fl (80-96); MEAN PLT VOLUME 10.2 fl (7.5-11.1); MONO % 6.2 % (3.8-10.2); NEUT % 58.1 % (42.8-82.8); PLATELET COUNT 233 K/MM3 (134-434); RBC 4.58 M/mm3 (3.60-5.2); RDW 16.3 % (11.6-15.6)
[2020-01-02 09:05] LABS: BILIRUBIN,TOTAL 0.4 mg/dL (0.2-1); BLOOD UREA NITROGEN 16.3 mg/dL (7-18); CALCIUM 8.6 mg/dL (8.5-10.1); CREATININE 0.9 mg/dL (0.55-1.3); MAGNESIUM 2.1 mg/dL (1.8-2.4); PHOSPHOROUS 4.4 mg/dL (2.5-4.9); POTASSIUM 4.1 mmol/L (3.5-5.1); TOT PROT 6.6 g/dl (6.4-8.2)
[2020-01-02] MEDS: LOSARTAN POTASSIUM 50 MG TABLET PO SCH (11:25)
[2020-01-02] MEDS: HYDROCHLOROTHIAZIDE 12.5 MG CAPSULE (FP) PO SCH (11:25)
[2020-01-02] MEDS: ENOXAPARIN NA (PORCINE) 40 MG/0.4 ML DISP.SYRIN SQ SCH (11:25)
[2020-01-02] MEDS: BACITRACIN 15 GM TUBE TOPICAL OINTMENT TP SCH (11:31)
[2020-01-02 14:12] VITALS: BP 117/64; PULSE 84; TEMP 98.5
== END 2020-01-02 16:34 | disposition home or self-care (01) | DRG 115 ==
LOC: JER 22:35 → JERBED 12-31 01:02 → J6S 12-31 04:36
PROVIDERS: ADMIT Internal Medicine; ATTEND Internal Medicine
DX: H60.91 Unspecified otitis externa, right ear (principal); J45.909 Unspecified asthma, uncomplicated; E03.9 Hypothyroidism, unspecified; E66.9 Obesity, unspecified; Z68.33 Body mass index [BMI] 33.0-33.9, adult; D11.0 Benign neoplasm of parotid gland; R60.9 Edema, unspecified; H74.8X3 Other specified disorders of middle ear and mastoid, bilateral; R59.0 Localized enlarged lymph nodes; L02.411 Cutaneous abscess of right axilla; H60.11 Cellulitis of right external ear; Z85.850 Personal history of malignant neoplasm of thyroid; E11.65 Type 2 diabetes mellitus with hyperglycemia; I10 Essential (primary) hypertension; Z91.14 Patient's other noncompliance with medication regimen
CPT/HCPCS: 36415; 70480-TC; 71046-TC-FY; 80053; 81003; 82962; 83036; 83605; 83735; 84100; 84443; 85025; 85610; 85651; 85730; 86140; 87040; 87086; 93005; 93010; 99285-25; U0003

== ENCOUNTER 2020-06-29 20:03 | Emergency (ER) | payer OTHER ==
[2020-06-29 20:16] VITALS: BP 142/74; PULSE 84; TEMP 98.2; BMI 34.1
[2020-06-29] MEDS ORDERED: IBUPROFEN 600 MG TABLET (FP) PO ONE ×2 (20:55→21:08)
== END 2020-06-29 21:49 | disposition home or self-care (01) ==
LOC: JERFT 20:03 → JER 20:03 → JERFT 21:49
DX: H66.91 Otitis media, unspecified, right ear (principal)
CPT/HCPCS: 99283-25; C9803; U0003

== ENCOUNTER 2021-09-10 13:31 | Emergency (ER) | payer OTHER ==
[2021-09-10 13:44] VITALS: BP 156/86; PULSE 92; TEMP 98; BMI 36.6
[2021-09-10] MEDS ORDERED: ACETAMINOPHEN 325 MG TABLET (FP) PO ONE (15:15)
[2021-09-10] MEDS ORDERED: LIDOCAINE 5% TOPICAL PATCH TP ONE (15:15)
[2021-09-10] MEDS ORDERED: LIDOCAINE 5% TOPICAL PATCH ONE (15:17)
[2021-09-10] MEDS ORDERED: ACETAMINOPHEN 325 MG TABLET (FP) ONE (15:17)
[2021-09-10] MEDS ORDERED: LIDOCAINE PATCH REMOVAL MC SCH (22:00)
== END 2021-09-10 16:02 | disposition home or self-care (01) ==
LOC: JERFT 13:31
DX: M79.601 Pain in right arm (principal)
CPT/HCPCS: 73030-TC-RT-FY; 73070-TC-RT-FY; 73110-TC-RT-FY; 73130-TC-RT-FY; 99284-25